=== PATIENT | female | born 1980 | race African-American/Black ===

== ENCOUNTER 2019-02-11 06:16 | Emergency (ER) | payer OTHER ==
[~2019-02-11] VITALS: Ht 165.1 cm; Wt 95.7 kg
[2019-02-11 06:30] VITALS: BP 110/72
[2019-02-11] MEDS ORDERED: CITA40TA12 PO (06:47)
[2019-02-11 07:30] LABS: BACTERIA,URINE FEW /HPF (0-FEW); BILIRUBIN,URINE NEG (NEG); CLARITY,URINE HAZY; COLOR,URINE YELLOW; GLUCOSE,URINE NEG (NEG); NITRITE,URINE NEG (NEG); SQUAMOUS EPITHELIAL CELL,UR MOD /LPF; UROBILINOGEN,URINE 0.2 mg/dL (0.2 mg/dL); WBC,URINE OCC /HPF (0-4)
--- NOTE | 2019-02-11 07:38 | PHYS DOC ---
Past History Past Medical History: Anxiety, Depression, Kidney Stones, Other Past Surgical History: Other Alcohol Use: Rarely Drug Use: None Adult General Chief Complaint Chief Complaint: FLANK PAIN HPI HPI Patient is a 38 year old female who presents with complaint of left-sided flank pain. Patient states that her symptoms started yesterday morning. States she does not remember any type of injury and has not been involved in any recent trauma or fall. Notes that the pain is along the left lower side of her back. Denies radiation of pain into the groin, abdomen, or lower extremity. States the pain is sharp and worsens with movement and walking. Has not taken any medications today for her symptoms. Denies any associated fever, vomiting, or change in stool habits. Review of Systems Review of Systems Constitutional: Denies fever or chills [] Eyes: Denies change in visual acuity, redness, or eye pain [] HENT: Denies nasal congestion or sore throat [] Respiratory: Denies cough or shortness of breath [] Cardiovascular: Denies chest pain or edema[] GI: Denies abdominal pain, nausea, vomiting, bloody stools or diarrhea [] : Denies dysuria or hematuria [] Musculoskeletal: Back pain[] Integument: Denies rash or skin lesions [] Neurologic: Denies headache, focal weakness or sensory changes [] All other systems were reviewed and found to be within normal limits, except as documented in this note. Current Medications Current Medications Current Medications Medications (Trade) Dose Ordered Sig/Mirian Start Time Stop Time Status Last Admin Dose Admin Acetaminophen (Tylenol) 1,000 mg 1X ONCE 02/11/19 07:45 02/11/19 07:46 Ketorolac Tromethamine (Toradol Im) 60 mg 1X ONCE 02/11/19 08:00 02/11/19 08:01 Orphenadrine Citrate (Norflex) 60 mg 1X ONCE 02/11/19 08:00 02/11/19 08:01 Allergies Allergies Allergies Coded Allergies Type Severity Reaction Last Updated Verified No Known Drug Allergies 02/11/19 No Physical Exam Physical Exam Constitutional: Alert, afebrile, appears in moderate discomfort. [] HENT: Normocephalic, atraumatic, bilateral external ears normal, oropharynx moist, no oral exudates, nose normal. [] Eyes: PERRLA, EOMI, conjunctiva normal, no discharge. [] Neck: Normal range of motion, no tenderness, supple, no stridor. [] Cardiovascular:Heart rate regular rhythm, no murmur [] Lungs & Thorax: Bilateral breath sounds clear to auscultation [] Abdomen: Bowel sounds normal, soft, no tenderness, no masses, no pulsatile masses. [] Skin: Warm, dry, no erythema, no rash. [] Back: No midline tenderness, no CVA tenderness, patient does have tenderness in the left lower lumbar paraspinous musculature with palpable spasm. [] Extremities: No tenderness, no cyanosis, no clubbing, ROM intact, no edema. [] Neurologic: Alert and oriented X 3, normal motor function, normal sensory function, no focal deficits noted. [] Current Patient Data Vital Signs Vital Signs Date Time Temp Pulse Resp B/P (MAP) Pulse Ox O2 Delivery O2 Flow Rate FiO2 02/11/19 06:30 97.9 63 20 99 Room Air Lab Results Laboratory Tests Test 02/11/19 06:50 02/11/19 07:04 Urine Collection Type Unknown Urine Color Yellow Urine Clarity Hazy Urine pH 7.0 Urine Specific [place] 1.020 Urine Protein Neg (NEG-TRACE) Urine Glucose (UA) Neg mg/dL (NEG) Urine Ketones (Stick) Neg mg/dL (NEG) Urine Blood Trace (NEG) Urine Nitrite Neg (NEG) Urine Bilirubin Neg (NEG) Urine Urobilinogen Dipstick 0.2 mg/dL (0.2 mg/dL) Urine Leukocyte Esterase Neg (NEG) Urine RBC 1-2 /HPF (0-2) Urine WBC Occ /HPF (0-4) Urine Squamous Epithelial Cells Mod /LPF Urine Bacteria Few /HPF (0-FEW) Urine Mucus Slight /LPF POC Urine HCG, Qualitative hcg negative (Negative) EKG EKG Not performed[] Radiology/Procedures Radiology/Procedures Not performed[] Course & Med Decision Making Course & Med Decision Making Pertinent Labs and Imaging studies reviewed. (See chart for details) The patient's exam is consistent with musculoskeletal low back pain. The patient was treated with IM Toradol, Norflex, and oral Tylenol in the emergency department. On reevaluation, the patient states that her pain level has improved. Patient will be prescribed Naprosyn and Flexeril for continued outpatient therapy with follow-up in 5-7 days with primary doctor for reevaluation. Advised return to the emergency department for any worsening symptoms. Patient was understanding and in agreement with treatment plan.[] Dragon Disclaimer Dragon Disclaimer This electronic medical record was generated, in whole or in part, using a voice recognition dictation system. Departure Departure: Impression: Primary Impression: Acute low back pain Disposition: HOME, SELF-CARE Condition: IMPROVED Referrals: GATO GONZALEZ DO, [facility] (PCP) Patient Instructions: Back Pain, Adult Additional Instructions: Follow-up with your primary doctor in 5-7 days for reevaluation. Return to the emergency department for any worsening symptoms. Scripts Cyclobenzaprine Hcl (CYCLOBENZAPRINE HCL) 10 Mg Tablet 1 TAB PO TID PRN for MUSCLE SPASMS, #30 TAB Prov: VAMSHI BULLOCK MD 02/11/19 Naproxen (NAPROSYN) 500 Mg Tablet 1 TAB PO BID, #20 TAB 0 Refills Prov: VAMSHI BULLOCK MD 02/11/19 Problem Qualifiers Primary Impression: Acute low back pain Back pain laterality: left Sciatica presence: without sciatica Qualified Codes: M54.5 - Low back pain VAMSHI BULLOCK MD Feb 11, 2019 07:38
[2019-02-11] MEDS ORDERED: ACETAMINOPHEN 500 MG TABLET PO ONE (07:45)
[2019-02-11] MEDS ORDERED: CYCL-331 PO (07:47)
[2019-02-11] MEDS ORDERED: NAPR-683 PO (07:47)
[2019-02-11] MEDS ORDERED: ORPHENADRINE CITRATE 60 MG/2 ML VIAL. IM ONE (08:00)
[2019-02-11] MEDS ORDERED: KETOROLAC 60 MG/2 ML VIAL. IM ONE (08:00)
== END 2019-02-11 08:15 | disposition home or self-care (01) ==
LOC: ER 06:16
DX: M54.5 Low back pain (principal); F41.9 Anxiety disorder, unspecified; F32.9 Major depressive disorder, single episode, unspecified; Z87.442 Personal history of urinary calculi
CPT/HCPCS: 81001; 81025; 96372; 99284; J1885; J2360

== ENCOUNTER 2019-02-19 13:25 | Emergency (ER) | payer OTHER ==
[~2019-02-19] VITALS: Ht 165.1 cm; Wt 95.7 kg
[~2019-02-19 13:25] MED LIST: CITA40TA12 PO; CYCL-331 PO; NAPR-683 PO
[2019-02-19 14:46] LABS: BASO % 0 % (0-3); EOS # 0.1 x10^3/uL (0.0-0.7); EOS % 1 % (0-3); HEMATOCRIT 40.3 % (36.0-47.0); HEMOGLOBIN 12.5 g/dL (12.0-15.5); LYMPH # 1.5 x10^3/uL (1.0-4.8); LYMPH % 17 % (24-48); MEAN CORPUSCULAR HEMOGLOBIN 25 pg (25-35); MEAN CORPUSCULAR HGB CONC 31 g/dL (31-37); MEAN CORPUSCULAR VOLUME 80 fL (79-100); MONO # 0.6 x10^3/uL (0.0-1.1); MONO % 7 % (0-9); NEUT # 6.7 x10^3uL (1.8-7.7); NEUT % 75 % (31-73); PLATELET COUNT 214 x10^3/uL (140-400); RED BLOOD COUNT 5.07 x10^6/uL (3.50-5.40); RED CELL DISTRIBUTION WIDTH 17.2 % (11.5-14.5); WHITE BLOOD COUNT 8.9 x10^3/uL (4.0-11.0)
[2019-02-19 15:00] VITALS: BP 143/88
[2019-02-19 15:01] LABS: ALBUMIN 3.7 g/dL (3.4-5.0); ALBUMIN/GLOBULIN RATIO 0.8 (1.0-1.7); CALCIUM 9.2 mg/dL (8.5-10.1); GFR 74.7; TOTAL BILIRUBIN 0.3 mg/dL (0.2-1.0); TOTAL PROTEIN 8.3 g/dL (6.4-8.2)
[2019-02-19] MEDS: MECLIZINE 12.5 MG TABLET. PO STA (15:33)
[2019-02-19 15:37] LABS: BILIRUBIN,URINE NEG (NEG); CLARITY,URINE CLEAR; COLOR,URINE YELLOW; GLUCOSE,URINE NEG (NEG); NITRITE,URINE NEG (NEG); U PREG PATIENT NEGATIVE (NEG); UROBILINOGEN,URINE 0.2 mg/dL (0.2 mg/dL)
[2019-02-19 15:38] LABS: BACTERIA,URINE FEW /HPF (0-FEW); RBC,URINE RARE /HPF (0-2); SQUAMOUS EPITHELIAL CELL,UR OCC /LPF
[2019-02-19] MEDS ORDERED: MECL25TA3 PO (16:15)
[2019-02-19] MEDS ORDERED: ONDA4TAB12 PO (16:15)
--- NOTE | 2019-02-19 16:15 | PHYS DOC ---
Past History Past Medical History: No Pertinent History Past Surgical History: Other Alcohol Use: None Drug Use: None Adult General Chief Complaint Chief Complaint: NAUSEA/VOMITING/DIARRHEA HPI HPI Patient is a 38 year old female who presents with complaint of dizziness and vomiting. Patient states her symptoms started earlier today. Noted that she was having an abnormal sensation of rocking back and forth when she was standing up and walking. Notes that this acutely worsened within an hour prior to arrival. Patient started having associated nausea and vomiting with her symptom s. Denies any fevers, chest pain, or abdominal pain. States that she did not consume any suspicious or spoiled food that she knows of. No one in her household has had any similar symptoms. Does note that she has felt fullness in her left ear and states that she has been trying to pressure regulate her year by pinching her nose and blowing. Denies any drainage from the ear. Has not taken any medications for her symptoms. Patient was brought to the emergency department by EMS due to sudden onset of symptoms. Was given IV Zofran by EMS which she states has helped her symptoms. Review of Systems Review of Systems Constitutional: Denies fever or chills [] Eyes: Denies change in visual acuity, redness, or eye pain [] HENT: Left ear muffled, denies nasal congestion and ear pain, or sore throat[] Respiratory: Denies cough or shortness of breath [] Cardiovascular: Denies chest pain or edema[] GI: Nausea, vomiting, denies abdominal pain, bloody stools or diarrhea [] : Denies dysuria or hematuria [] Musculoskeletal: Denies back pain or joint pain [] Integument: Denies rash or skin lesions [] Neurologic: Dizziness, denies headache, focal weakness or sensory changes [] All other systems were reviewed and found to be within normal limits, except as documented in this note. Current Medications Current Medications Current Medications Medications (Trade) Dose Ordered Sig/Mirian Start Time Stop Time Status Last Admin Dose Admin Meclizine HCl (Antivert) 25 mg 1X STAT 02/19/19 14:56 02/19/19 15:02 DC 02/19/19 15:33 25 MG Allergies Allergies Allergies Coded Allergies Type Severity Reaction Last Updated Verified No Known Drug Allergies 02/11/19 No Physical Exam Physical Exam Constitutional: Alert, afebrile, appears ill. [] HENT: Normocephalic, atraumatic, bilateral external ears normal, left TM slightly bulging with serous fluid, non-erythematous, right TM normal, oropharynx moist, no oral exudates, nose normal. [] Eyes: PERRLA, EOMI, conjunctiva normal, no discharge. [] Neck: Normal range of motion, no tenderness, supple, no stridor. [] Cardiovascular:Heart rate regular rhythm, no murmur [] Lungs & Thorax: Bilateral breath sounds clear to auscultation [] Abdomen: Bowel sounds normal, soft, no tenderness, no masses, no pulsatile masses. [] Skin: Warm, dry, no erythema, no rash. [] Back: No tenderness, no CVA tenderness. [] Extremities: No tenderness, no cyanosis, no clubbing, ROM intact, no edema. [] Neurologic: Alert and oriented X 3, normal motor function, normal sensory function, no focal deficits noted. [] Current Patient Data Vital Signs Vital Signs Date Time Temp Pulse Resp B/P (MAP) Pulse Ox O2 Delivery O2 Flow Rate FiO2 02/19/19 14:15 97.8 80 16 100 Room Air Lab Results Laboratory Tests Test 02/19/19 14:27 02/19/19 15:06 White Blood Count 8.9 x10^3/uL (4.0-11.0) Red Blood Count 5.07 x10^6/uL (3.50-5.40) Hemoglobin 12.5 g/dL (12.0-15.5) Hematocrit 40.3 % (36.0-47.0) Mean Corpuscular Volume 80 fL (79-100) Mean Corpuscular Hemoglobin 25 pg (25-35) Mean Corpuscular Hemoglobin Concent 31 g/dL (31-37) Red Cell Distribution Width 17.2 % (11.5-14.5) H Platelet Count 214 x10^3/uL (140-400) Neutrophils (%) (Auto) 75 % (31-73) H Lymphocytes (%) (Auto) 17 % (24-48) L Monocytes (%) (Auto) 7 % (0-9) Eosinophils (%) (Auto) 1 % (0-3) Basophils (%) (Auto) 0 % (0-3) Neutrophils # (Auto) 6.7 x10^3uL (1.8-7.7) Lymphocytes # (Auto) 1.5 x10^3/uL (1.0-4.8) Monocytes # (Auto) 0.6 x10^3/uL (0.0-1.1) Eosinophils # (Auto) 0.1 x10^3/uL (0.0-0.7) Basophils # (Auto) 0.0 x10^3/uL (0.0-0.2) Sodium Level 137 mmol/L (136-145) Potassium Level 4.0 mmol/L (3.5-5.1) Chloride Level 103 mmol/L (98-107) Carbon Dioxide Level 17 mmol/L (21-32) L Anion Gap 17 (6-14) H Blood Urea Nitrogen 15 mg/dL (7-20) Creatinine 1.0 mg/dL (0.6-1.0) Estimated GFR (Cockcroft-Gault) 74.7 BUN/Creatinine Ratio 15 (6-20) Glucose Level 100 mg/dL (70-99) H Calcium Level 9.2 mg/dL (8.5-10.1) Total Bilirubin 0.3 mg/dL (0.2-1.0) Aspartate Amino Transferase (AST) 26 U/L (15-37) Alanine Aminotransferase (ALT) 24 U/L (14-59) Alkaline Phosphatase 40 U/L (46-116) L Total Protein 8.3 g/dL (6.4-8.2) H Albumin 3.7 g/dL (3.4-5.0) Albumin/Globulin Ratio 0.8 (1.0-1.7) L Lipase 177 U/L (73-393) Urine Collection Type Unknown Urine Color Yellow Urine Clarity Clear Urine pH 7.0 Urine Specific [place] 1.020 Urine Protein Neg (NEG-TRACE) Urine Glucose (UA) Neg mg/dL (NEG) Urine Ketones (Stick) 15 mg/dL (NEG) Urine Blood Trace (NEG) Urine Nitrite Neg (NEG) Urine Bilirubin Neg (NEG) Urine Urobilinogen Dipstick 0.2 mg/dL (0.2 mg/dL) Urine Leukocyte Esterase Neg (NEG) Urine RBC Rare /HPF (0-2) Urine WBC 1-4 /HPF (0-4) Urine Squamous Epithelial Cells Occ /LPF Urine Bacteria Few /HPF (0-FEW) Urine Test Negative (NEG) EKG EKG Not performed[] Radiology/Procedures Radiology/Procedures Not performed[] Course & Med Decision Making Course & Med Decision Making Pertinent Labs and Imaging studies reviewed. (See chart for details) Patient given IV fluids and oral meclizine. The patient's blood work shows a decreased CO2 level but no other abnormal findings. This is likely due to dehydration. Patient states her symptoms are much better at this time and her vital signs are stable. Suspect patient's symptoms secondary to labyrinthitis causing vertigo. Will continue meclizine and Zofran for outpatient treatment with recommended follow-up in 2 days with primary doctor for reevaluation. Advised return to emergency department for any worsening symptoms. Patient voiced understanding and in agreement with treatment plan.[] Dragon Disclaimer Dragon Disclaimer This electronic medical record was generated, in whole or in part, using a voice recognition dictation system. Departure Departure: Impression: Primary Impression: Vertigo Disposition: 01 HOME, SELF-CARE Condition: IMPROVED Referrals: GATO GONZALEZ DO, [facility] (PCP) Patient Instructions: Vertigo Additional Instructions: Follow-up with your primary doctor in the next 2 days for reevaluation. Return to the emergency department for any worsening symptoms. Scripts Ondansetron (ONDANSETRON ODT) 4 Mg Tab.rapdis 1 TAB PO PRN Q6-8HRS PRN for NAUSEA/VOMITING, #16 TAB Prov: VAMSHI BULLOCK MD 02/19/19 Meclizine Hcl (MECLIZINE HCL) 25 Mg Tablet 1 TAB PO QID PRN for DIZZINESS, #30 TAB Prov: VAMSHI BULLOCK MD 02/19/19 VAMSHI BULLOCK MD Feb 19, 2019 16:15
== END 2019-02-19 16:18 | disposition home or self-care (01) ==
LOC: ER 13:25
DX: R42 Dizziness and giddiness (principal); R11.2 Nausea with vomiting, unspecified; H93.8X2 Other specified disorders of left ear
CPT/HCPCS: 36415; 80053; 81001; 81025; 83690; 85025; 99284; J8597

== ENCOUNTER 2019-03-26 19:24 | Emergency (ER) | payer OTHER ==
[~2019-03-26] VITALS: Ht 165.1 cm; Wt 95.7 kg
[~2019-03-26 19:24] MED LIST changes: +MECL25TA3 PO; +ONDA4TAB12 PO
--- NOTE | 2019-03-26 20:04 | PHYS DOC ---
Past History Past Medical History: Anxiety, Other Additional Past Medical Histor: vertigo Past Surgical History: Other Smoking: Non-smoker Alcohol Use: None Drug Use: None Adult General Chief Complaint Chief Complaint: DIZZY/LIGHT HEADED HPI HPI Patient is a 38-year-old female presents with dizziness similar to previous vertigo. Current symptoms started approximately 90 minutes prior to arrival. Rotational component that is worse with moving her head. No headache. One episode of vomiting. She did take Zofran and meclizine which are now starting to "kick in" and is feeling better but not totally back to her normal self. No weakness in the arms or legs. No head trauma. She had been recently on both Sudafed as well as Mucinex but had stopped taking Mucinex over the past several days. This was for fluid behind the eardrums noted by her primary care physician. There was no blood in the emesis. No change in behavior according to .[] Review of Systems Review of Systems Constitutional: Denies fever or chills [] Eyes: Denies change in visual acuity, redness, or eye pain [] HENT: Denies nasal congestion or sore throat [] Respiratory: Denies cough or shortness of breath [] Cardiovascular: No chest pain or palpitations[] GI: Denies abdominal pain, nausea, vomiting, bloody stools or diarrhea [] : Denies dysuria or hematuria [] Musculoskeletal: Denies back pain or joint pain [] Integument: Denies rash or skin lesions [] Neurologic: Denies headache, focal weakness or sensory changes or see history of present illness [] Endocrine: Denies polyuria or polydipsia [] All other systems were reviewed and found to be within normal limits, except as documented in this note. Allergies Allergies Allergies Coded Allergies Type Severity Reaction Last Updated Verified No Known Drug Allergies 02/11/19 No Physical Exam Physical Exam Constitutional: Well developed, well nourished, no acute distress, non-toxic appearance. [] HENT: Normocephalic, atraumatic, bilateral external ears normal, TMs are clear without any fluid. Oropharynx moist, no oral exudates, nose normal. [] Eyes: PERRLA, EOMI, conjunctiva normal, no discharge. [] Neck: Normal range of motion, no tenderness, supple, no stridor. [] Cardiovascular:Heart rate regular rhythm, no murmur [] Lungs & Thorax: Bilateral breath sounds clear to auscultation [] Abdomen: Bowel sounds normal, soft, no tenderness, no masses, no pulsatile masses. [] Skin: Warm, dry, no erythema, no rash. [] Back: No tenderness, no CVA tenderness. [] Extremities: No tenderness, no cyanosis, no clubbing, ROM intact, no edema. [] Neurologic: Alert and oriented X 3, normal motor function, normal sensory function, no focal deficits noted. Nystagmus with fast beat to the left noted on Hallpike maneuvers[] Psychologic: Affect normal, judgement normal, mood normal. [] Current Patient Data Vital Signs Vital Signs Date Time Temp Pulse Resp B/P (MAP) Pulse Ox O2 Delivery O2 Flow Rate FiO2 03/26/19 19:44 98.4 72 16 100 Room Air EKG EKG [] Radiology/Procedures Radiology/Procedures [] Course & Med Decision Making Course & Med Decision Making Pertinent Labs and Imaging studies reviewed. (See chart for details) ED course: Patient arrived, was placed in bed, and tolerated exam well. She was given medicine to help with what appear to be symptoms of peripheral vertigo. She reported having significant improvement in her symptoms. She was discharged in improved condition. Medical decision making: There is no evidence of a central vertigo. No evidence of intractable vertigo, intractable nausea or vomiting. No evidence of an ear infection. No evidence of a stroke syndrome.[] Dragon Disclaimer Dragon Disclaimer This electronic medical record was generated, in whole or in part, using a voice recognition dictation system. Departure Departure: Impression: Primary Impression: Peripheral vertigo Disposition: HOME, SELF-CARE Condition: STABLE Referrals: GATO GONZALEZ DO, [facility] (PCP) Follow-up in 2 days Patient Instructions: Vertigo Additional Instructions: Follow-up with your regular doctor in 2 days. Return to the ER if worsening dizziness, chest pain, difficulty breathing, or any other concerns. Scripts Diazepam (VALIUM) 5 Mg Tablet 5 MG PO TID for dizziness, #15 TAB Prov: BONNY MOJICA DO 03/26/19 Problem Qualifiers Primary Impression: Peripheral vertigo Laterality: unspecified laterality Qualified Codes: H81.399 - Other peripheral vertigo, unspecified ear BONNY MOJICA DO Mar 26, 2019 20:04
[2019-03-26] MEDS ORDERED: diazePAM 5 MG TABLET PO ONE (20:15)
[2019-03-26] MEDS ORDERED: ONDANSETRON PF 4 MG/2 ML VIAL. IV ONE (20:45)
[2019-03-26 21:41] VITALS: BP 134/83
[2019-03-26] MEDS ORDERED: DIAZ5TAB PO (21:58)
== END 2019-03-26 22:10 | disposition home or self-care (01) ==
LOC: ER 19:24
DX: H81.399 Other peripheral vertigo, unspecified ear (principal); R11.11 Vomiting without nausea
CPT/HCPCS: 96374; 99284; J2405